=== PATIENT | male | born 1945 | race Caucasian/White ===

== ENCOUNTER 2022-03-25 14:04 | Inpatient (IN) | payer MEDICARE ==
[~2022-03-25] VITALS: Ht 170.2 cm; Wt 79.0 kg
[~2022-03-25 14:04] MED LIST: CLIN300C3 PO; HYDR-3965 PO; IBUP-1984 PO; LEVO750T68 PO; LIDO1ADH78 TOP
[2022-03-25] MEDS ORDERED: heparin 10,000 units/1 ML INJ IV ONE ×4 (16:00→17:00)
[2022-03-25] MEDS ORDERED: heparin 25,000 UNIT/250ml bag 250 ML IV PRN ×2 (16:06→17:00)
[2022-03-25] MEDS ORDERED: heparin 10,000 units/1 ML INJ IV PRN ×2 (16:08→17:00)
[2022-03-25 16:09] LABS: APTT 31 SECONDS (22-32); BASOPHILS # (AUTO) 0.1 X10'3 (0-0.2); EOSINOPHILS # (AUTO) 0.1 X10'3 (0-0.9); EOSINOPHILS % (AUTO) 1.9 % (0-6); HEMATOCRIT 28.2 % (42.0-52.0); HEMOGLOBIN 9.6 g/dl (14.0-17.9); LYMPHOCYTES # (AUTO) 1.6 X10'3 (1.1-4.8); LYMPHOCYTES % (AUTO) 20.8 % (21-51); MEAN CORPUSCULAR HEMOGLOBIN 31.9 PG (27.0-31.0); MEAN PLATELET VOLUME 6.9 FL (7.4-10.4); MONOCYTES # (AUTO) 1.1 X10'3 (0-0.9); MONOCYTES % (AUTO) 14.4 % (2-12); NEUTROPHILS # (AUTO) 4.8 X10'3 (1.8-7.7); NEUTROPHILS % (AUTO) 61.9 % (42-75); PLATELET COUNT 477 X10'3 (140-440); WHITE BLOOD COUNT 7.8 X10'3 (4.5-11.0)
[2022-03-25 16:21] LABS: ALBUMIN 2.2 G/DL (3.4-5.0); ANION GAP 6 (8-16); BLOOD UREA NITROGEN 24 MG/DL (7-18); BUN/CREATININE RATIO 27.6 (5.4-32.0); CALCIUM 8.3 MG/DL (8.5-10.1); CHLORIDE 100 MMOL/L (99-107); CREATININE 0.87 MG/DL (0.60-1.10); GLUCOSE 92 MG/DL (70-104); SODIUM 135 MMOL/L (135-145); TOTAL CARBON DIOXIDE 28.7 MMOL/L (24-32); eGFR 86 ML/MIN
[2022-03-25 16:24] LABS: POTASSIUM 4.2 MMOL/L (3.5-5.1)
[2022-03-25] MEDS ORDERED: CefTRIAXone 2gm/D5W 50ml BAG 50 ML IV ONE (16:30)
[2022-03-25] MEDS ORDERED: azithromycin/NS 500mg/250ml 250 ML IV ONE (16:30)
[2022-03-25] MEDS ORDERED: iohexol 350MG/ML 100ml bottle IV ONE (16:31)
[2022-03-25] MEDS ORDERED: mag hydrox/Alum hydrox/simeth 30ml oral suspension PO PRN (17:00)
[2022-03-25] MEDS ORDERED: HYDROmorphone inj. 0.5 MG/0.5 ML DISP.SYRIN IV PRN (17:00)
[2022-03-25] MEDS ORDERED: magnesium Cl slow-release 64mg tablet PO PRN (17:00)
[2022-03-25] MEDS ORDERED: HYDROmorphone/PF 0.2 MG/ML SYRINGE IV PRN (17:00)
[2022-03-25] MEDS ORDERED: potassium Cl 20 mEq SR tablet PO PRN ×2 (17:00)
[2022-03-25] MEDS ORDERED: magnesium 4gm in 100ml NS 100 ML IV PRN (17:00)
[2022-03-25] MEDS ORDERED: HYDROcodone/acetaminophen 5mg/325mg tablet PO PRN (17:00)
[2022-03-25] MEDS ORDERED: ondansetron 4mg rapidly disintigrating tab PO PRN (17:00)
[2022-03-25] MEDS ORDERED: magnesium hydroxide 30ml (MOM) UD suspension PO PRN (17:00)
[2022-03-25] MEDS ORDERED: HYDROcodone/acetaminophen 10/325mg tab PO PRN (17:00)
[2022-03-25] MEDS ORDERED: acetaminophen 325mg tablet PO PRN ×2 (17:00)
[2022-03-25] MEDS ORDERED: bisacodyl 10mg suppository rectal RC PRN (17:00)
[2022-03-25] MEDS ORDERED: potassium Cl 40MEQ/1/2NS 520ml 520 ML IV PRN (17:00)
[2022-03-25] MEDS ORDERED: acetaminophen 650mg rectal suppository RC PRN (17:00)
[2022-03-25] MEDS ORDERED: ondansetron/PF 4mg/2ml inj IV PRN (17:00)
[2022-03-25] MEDS: normal saline 1000ml 1,000 ML IV SCH (17:00)
[2022-03-25] MEDS: pantoprazole 40mg Tablet.DR PO SCH (17:50)
[2022-03-25] MEDS ORDERED: HYDR-3964 PO (18:18)
[2022-03-25] MEDS ORDERED: CLIN300C56 PO (18:18)
[2022-03-25] MEDS ORDERED: LEVO750T68 PO (18:19)
[2022-03-25] MEDS ORDERED: FERR325T32 PO (18:19)
[2022-03-25] MEDS: K and/or MAG REPLACEMENT MC SCH (18:41)
[2022-03-25] MEDS: docusate sod 100mg capsule PO SCH (20:49)
[2022-03-25] MEDS ORDERED: temazepam 15mg capsule PO PRN (21:00)
[2022-03-25 21:30] VITALS: BP 122/62
[2022-03-26 01:00] VITALS: BP 117/60
[2022-03-26] MEDS: normal saline 1000ml 1,000 ML IV SCH ×2 (05:16→13:00)
[2022-03-26 05:30] LABS: BASOPHILS # (AUTO) 0.1 X10'3 (0-0.2); BASOPHILS % (AUTO) 1.4 % (0-1); EOSINOPHILS # (AUTO) 0.2 X10'3 (0-0.9); HEMATOCRIT 26.5 % (42.0-52.0); HEMOGLOBIN 8.8 g/dl (14.0-17.9); LYMPHOCYTES # (AUTO) 1.8 X10'3 (1.1-4.8); MEAN CORPUSCULAR HEMOGLOBIN 31.4 PG (27.0-31.0); MEAN CORPUSCULAR HGB CONC 33.3 g/dL (33.0-36.5); MEAN CORPUSCULAR VOLUME 94.3 FL (78-98); MEAN PLATELET VOLUME 7.5 FL (7.4-10.4); MONOCYTES # (AUTO) 1.1 X10'3 (0-0.9); MONOCYTES % (AUTO) 14.1 % (2-12); NEUTROPHILS # (AUTO) 4.5 X10'3 (1.8-7.7); NEUTROPHILS % (AUTO) 58.5 % (42-75); PLATELET COUNT 438 X10'3 (140-440); RED BLOOD COUNT 2.81 X10'6 (4.70-6.10); RED CELL DISTRIBUTION WIDTH 13.9 % (11.5-14.5); WHITE BLOOD COUNT 7.7 X10'3 (4.5-11.0)
[2022-03-26 05:47] LABS: ALANINE AMINOTRANSFERASE 46 U/L (12-78); ALBUMIN/GLOBULIN RATIO 0.5 (1.1-1.5); ALKALINE PHOSPHATASE 66 IU/L (46-116); ANION GAP 8 (8-16); ASPARTATE AMINO TRANSFERASE 25 U/L (10-37); BILIRUBIN,TOTAL 0.3 MG/DL (0.1-1.0); BLOOD UREA NITROGEN 18 MG/DL (7-18); BUN/CREATININE RATIO 20.9 (5.4-32.0); CALCIUM 8.1 MG/DL (8.5-10.1); CHLORIDE 102 MMOL/L (99-107); CREATININE 0.86 MG/DL (0.60-1.10); GLUCOSE 94 MG/DL (70-104); SODIUM 135 MMOL/L (135-145); TOTAL CARBON DIOXIDE 25.1 MMOL/L (24-32); TOTAL PROTEIN 6.2 G/DL (6.4-8.2); eGFR 87 ML/MIN
[2022-03-26 06:00] VITALS: BP 112/68
--- NOTE | 2022-03-26 06:12 | NUR ---
came in to get report from ANDRE Hernandez on this pt. he had a ptt for heparin that resulted at 0450 am that was 34 that was not changed by the night charge nurse because SIGNAL WIRER is not allowed to change this. accounting manager controller stated he had asked her to change it and it never got done. when i got here i asked her if she could go change it since it was never done.charge nurse stated when asked, it'll just be done at 7am after shes done getting report. i will let my charge nurse know and make aware as well.
--- NOTE | 2022-03-26 06:53 | NUR ---
Patient in room PCU 3025. I have received report from DARREL POWELL and had the opportunity to ask questions and assume patient care.
--- NOTE | 2022-03-26 07:05 | NUR ---
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 charge nurse did go in about 0630 am and changed the drip to the appropriate amount. day charge was made aware as well.
[2022-03-26] MEDS: pantoprazole 40mg Tablet.DR PO SCH (07:55)
[2022-03-26] MEDS: docusate sod 100mg capsule PO SCH (07:55)
[2022-03-26] MEDS ORDERED: azithromycin/NS 500mg/250ml 250 ML IV SCH (08:00)
[2022-03-26] MEDS ORDERED: CefTRIAXone/D5W-Rocephin 1gm 50 ML IV SCH (08:00)
[2022-03-26] MEDS: K and/or MAG REPLACEMENT MC SCH (08:00)
[2022-03-26 10:00] VITALS: BP 116/55
[2022-03-26] MEDS ORDERED: apixaban 5mg tablet PO ONE (12:00)
[2022-03-26] MEDS ORDERED: APIX5TAB3 PO (12:05)
--- NOTE | 2022-03-26 14:48 | NUR ---
pt is stable fro discharge, iv is discharge and cannula is intact, all discharge info gone over with the pt, all belongings taken with pt, he was walked down to the [facility] and left in a private vehicle with .
== END 2022-03-26 14:20 | disposition home or self-care (01) | DRG 301 ==
LOC: ER 14:04 → ED HOLD 17:07 → PCU 3S 21:30
PROVIDERS: ADMIT Family Medicine; ATTEND Family Medicine
PROC: B32T1ZZ Computerized Tomography (CT Scan) of Left Pulmonary Artery using Low Osmolar Contrast (ICD-10-PCS; principal; 2022-03-25)
PROC: B3201ZZ Computerized Tomography (CT Scan) of Thoracic Aorta using Low Osmolar Contrast (ICD-10-PCS; 2022-03-25)
PROC: B32S1ZZ Computerized Tomography (CT Scan) of Right Pulmonary Artery using Low Osmolar Contrast (ICD-10-PCS; 2022-03-25)
DX: I82.403 Acute embolism and thrombosis of unspecified deep veins of lower extremity, bilateral (principal); Z86.16 Personal history of COVID-19; Z87.01 Personal history of pneumonia (recurrent); Z88.0 Allergy status to penicillin
CPT/HCPCS: 36415; 71045; 71275; 80048; 80053; 83605; 83735; 83880; 84145; 84484; 85025; 85610; 85730; 87040; 87081; 92508; 92616; 93005; 93970; 96365; 96368; 96376; 99291; G0378; J0456; J0696; J1644; J3490; J7030; Q9967